=== PATIENT | male | born 1985 | race Caucasian/White ===

== ENCOUNTER 2016-09-09 01:54 | Emergency (ER) | payer MEDICAID, OTHER ==
[2016-09-09 02:02] VITALS: BP 144/85
[2016-09-09] MEDS ORDERED: CIPROFLOX/DEXAMETH OTIC DROPS EACHEAR STA (02:13)
[2016-09-09] MEDS ORDERED: IBUPROFEN 600 MG TABLET PO STA (02:13)
--- NOTE | 2016-09-09 02:17 | ED Physician Documentation ---
PD HPI HEENT - Stated complaint Stated Complaint: R EAR PX - Chief complaint Chief Complaint: Heent - History obtained from History obtained from: Patient - History of Present Illness Timing - onset: How many days ago (4) Timing - details: Gradual onset, Still present Location: Right ear, Left ear Associated symptoms: No: Fever, Congestion, Rhinorrhea, Unable to swallow Similar symptoms before: Has not had sx before Recently seen: Not recently seen - Additional information Additional information: Patient is a 31 year old male with no significant past medical history who is presenting to the emergency department for ear pain. patient states that the pain has been going on for the last three days but has become progressively worse. Review of Systems Constitutional: denies: Fever, Chills Eyes: denies: Loss of vision, Decreased vision Ears: reports: Loss of hearing, Ear pain, Drainage/discharge. denies: Tinnitus/ ringing Nose: denies: Rhinorrhea / runny nose, Congestion Throat: denies: Dental pain / toothache, Sore throat Cardiac: denies: Chest pain / pressure Respiratory: denies: Dyspnea, Cough GI: denies: Nausea, Vomiting : denies: Dysuria Musculoskeletal: denies: Neck pain Neurologic: denies: Generalized weakness, Focal weakness, Numbness Immunocompromised: denies: Immunocompromised PD PAST MEDICAL HISTORY - Past Medical History Past Medical History: No Cardiovascular: None Respiratory: None Neuro: None Endocrine/Autoimmune: None GI: None - Past Surgical History Past Surgical History: No - Present Medications Home Medications: Ambulatory Orders Medication Instructions Recorded Confirmed No Known Home Medications [No 04/08/15 09/09/16 Known Home Medications] - Allergies Allergies/Adverse Reactions: Allergies Allergy/AdvReac Type Severity Reaction Status Date / Time No Known Drug Allergies Allergy Verified 09/09/16 02:02 - Social History Does the pt smoke?: Yes Smoking Status: Current every day smoker Does the pt drink ETOH?: Yes ETOH Use: Beer Does the pt have substance abuse?: No - Immunizations Immunizations are current?: Yes - POLST Patient has POLST: No PD ED PE NORMAL - Vitals Vital signs reviewed: Yes - General General: Alert and oriented X 3, No acute distress, Well developed/nourished - HEENT HEENT: Atraumatic, PERRL, Moist mucous membranes, Pharynx benign - Neck Neck: Supple, no meningeal sign, No JVD - Cardiac Cardiac: RRR, No murmur - Respiratory Respiratory: No respiratory distress, Clear bilaterally - Derm Derm: Normal color, Warm and dry, No rash - Extremities Extremities: No deformity - Neuro Neuro: No motor deficit, No sensory deficit, Normal speech - Psych Psych: Normal mood, Normal affect PD ED PE EXPANDED - HEENT HEENT: Other (bilateral externa canals with discharge, and buildup) Results - Vitals Vitals: Vital Signs - 24 hr 09/09/16 02:00 Temperature 36.5 C Heart Rate 97 Respiratory 16 Rate Blood Pressure 144/85 H O2 Saturation 99 Oxygen O2 Source Room air PD MEDICAL DECISION MAKING - ED course Complexity details: re-evaluated patient, considered differential, d/w patient ED course: Patient was seen and examined at bedside. Patient's findings were consistent with otitis externa. Patient was treated with ciprodex and motrin. patient requierd no further work up and was stable for discharge with outpatient follow up. Departure - Departure Disposition: 01 Home, Self Care Clinical Impression: Otitis externa Condition: Good Instructions: ED Otitis Externa Follow-Up: primary,care provider [Other] - Within 1 week (re-evaluate infection) Comments: Your symptoms today are being caused by otitis externa. You were started on antibiotics tonight and will need to take them twice a day for the next week. You should schedule a follow up appointment with your pmd in a week for re- evaluation. You can take motrin or tylenol as needed for new, worsening or uncontrollable symptoms.
[2016-09-09] MEDS ORDERED: IBUPROFEN 600 MG TABLET PO ONE (02:25)
[2016-09-09] MEDS ORDERED: CIPROFLOX/DEXAMETH OTIC DROPS ONE (02:26)
== END 2016-09-09 02:42 | disposition home or self-care (01) ==
LOC: ED 01:54
DX: H60.93 Unspecified otitis externa, bilateral (principal); F17.200 Nicotine dependence, unspecified, uncomplicated
CPT/HCPCS: 99283; A9270